=== PATIENT | female | born 1985 | race Two or more races ===

== ENCOUNTER 2021-03-26 00:26 | Emergency (ER) | payer OTHER ==
[~2021-03-26] VITALS: Ht 170.2 cm; Wt 109.1 kg
[2021-03-26 00:29] VITALS: BP 135/66
[2021-03-26 01:11] LABS: APPEARANCE,URINE CLOUDY (CLEAR); BILIRUBIN,URINE NEGATIVE (NEGATIVE); GLUCOSE, URINE (UA) NEGATIVE (NEGATIVE); KETONES,URINE NEGATIVE (NEGATIVE); LEUKOCYTE ESTERASE ,URINE MODERATE (NEGATIVE); NITRATE,URINE NEGATIVE (NEGATIVE); OCCULT BLOOD,URINE TRACE (NEGATIVE); PH,URINE 6.5 (5.0-8.0); PROTEIN,URINE TRACE (NEGATIVE); UROBILINOGEN,URINE 0.2 mg/dL (<=1.0)
[2021-03-26 01:25] LABS: BACTERIA,URINE Few /HPF (None Seen)
[2021-03-26] MEDS ORDERED: DOXYCYCLINE HYCLATE 100 MG TABLET PO ONE (03:15)
[2021-03-26] MEDS ORDERED: LIDOCAINE/PF 1% 2 ML VIAL IM ONE (03:15)
[2021-03-26] MEDS ORDERED: CefTRIAXone SODIUM 1 GM/VIAL IM ONE (03:15)
== END 2021-03-26 03:17 | disposition home or self-care (01) ==
LOC: EMS 00:33
DX: N39.0 Urinary tract infection, site not specified (principal); Z20.2 Contact with and (suspected) exposure to infections with a predominantly sexual mode of transmission
CPT/HCPCS: 81001; 84703; 87077; 87086; 87491; 87591; 96372; 99283; J0696; J3490